=== PATIENT | female | born 1960 | race Caucasian/White ===

== ENCOUNTER → 2016-04-19 | Outpatient (CLI) | payer OTHER, BC ==
[~2016-04-19] MED LIST: PREDNISONE 20MG20 MG PO
--- NOTE | 2016-04-20 17:08 | RADIOLOGY REPORT PS360 ---
MRI-UP EXT ANY JNT W/O-LT MRI left shoulder ORDERING PHYSICIAN : Between the PATIENT AGE: 56 years GENDER: Female INDICATION: SHOULDER PAIN AFTER TRAUMA Left shoulder pain after trauma. One month ago she fell minor left shoulder. Interval pleural plaque concern regarding the posterior inferior Weakness left arm limited range of motion TECHNIQUE: Multiplanar multisequence imaging 1. 5:00 PM MRI COMPARISON: None FINDINGS There is a round stippled appearing osseous lesion centrally at proximal humerus, at surgical neck of humerus. Possibly a enchondroma or similar benign process but would recommend follow-up plain films 3 view left shoulder to correlate. Actually plain films remain the essential and [place] for any bone lesion evaluation No full-thickness rotator cuff tear There is increased signal at supraspinatus tendon suggesting supraspinatus tendinopathy. No full-thickness tendon tear evident. No significant fluid at subdeltoid subacromial bursa to support a small here either. Narrowed subacromial space, measures ~4 mm beneath tip of acromion. This may contribute to impingement symptoms if present. Mild/moderate AC joint hypertrophy & arthropathy. Increased signal foci about the AC joint reflecting these degenerative changes. The Mild hypertrophy here yields mild encroachment upon the supraspinatus at medial outlet. The subscapularis tendon and infraspinatus tendon appear intact. There is a focus of Increased signal at the infraspinatus tendon insertion most likely reflecting insertional erosion and cystic changes. Less likely focal area of trauma minor bone contusion Muscles of rotator cuff remain well maintained.. No atrophy Biceps tendon appears intact and well-developed Slight increased joint fluid at the anterior joint and subcoracoid recess. The osseous glenoid & Anterior glenoid labrum appear intact. Posterior glenoid labrum with slight increase throughout-may reflect degenerative change. Difficult to exclude possible minor posterior labral tear. Inferiorly at the joint there is a slightly redundant inferior glenohumeral ligament but most likely reflect some laxity at the inferior joint capsule. Only minor edema here with No convincing or inferior glenohumeral ligament tear.-However pain persists this may need further consideration evaluation along with the posterior labrum IMPRESSION: 1. Supraspinatus tendinopathy. . No evidence for full-thickness cuff tear. No fluid at subdeltoid subacromial bursa 2.. Narrowing subacromial space beneath tip of acromion -may impinge upon supraspinatus tendon & contribute to the tendinopathy & impingement symptoms if present. Are there impingement symptoms? - Also mild/moderate hypertrophy of AC joint slightly impinge upon superior aspect supraspinatus as passes through the medial outlet as well. Could also contribute to impingement symptoms if present. 4. Scant joint effusion 5. Upper normal to slight increased signal posterior glenoid labrum. Could reflect recent injury vs mild degeneration. Cannot exclude minor posterior labral tear at posterior shoulder pain present. If pain persist and arthroscopy and centered, this area should be inspected, along with the redundant slightly stretched inferior glenohumeral ligament./Inferior joint capsule region. 6. Most likely benign round Bone lesion proximal humerus. There is a 1.4 cm stippled round area centrally at the bone at surgical neck of proximal humerus . Possible enchondroma.. Requires plain films Left Shoulder to correlation and further evaluate.
== END ==
LOC: RAD 10:58
DX: M25.512 Pain in left shoulder (principal)

== ENCOUNTER → 2016-05-24 | Outpatient (CLI) | payer BC ==
--- NOTE | 2016-05-24 16:51 | RADIOLOGY REPORT PS360 ---
US PELVIS-TRANSVAGINAL ONLY HISTORY: POST MENOPAUSAL BLEEDING ORDERING PHYSICIAN: Ted Chatterjee MD PATIENT AGE: 56 years COMPARISON: 03/13/2011 FINDINGS: The uterus is retroverted and measures 7.3 x 5.9 cm with a combined endometrial thickness of 5 mm. No uterine mass evident. The right ovary is 2.8 x 1.9 cm and contains a 1.4 cm x 1.6 cm cyst. The left ovary has been surgically removed. No cul-de-sac fluid apparent. IMPRESSION: 1. Retroverted uterus. Normal thickness of the endometrium. 2. 1.6 cm right ovarian cyst. Prior left oophorectomy
== END ==
LOC: RAD 05-19 13:30
DX: N95.0 Postmenopausal bleeding (principal)